=== PATIENT | male | born 1945 | race Caucasian/White ===

== ENCOUNTER 2019-09-04 07:47 | Day surgery (SDC) | payer MEDICARE, OTHER ==
[2019-09-04] VITALS (10 sets, daily range): BP systolic 97–146; BP diastolic 59–75
[~2019-09-04] VITALS: Ht 167.6 cm; Wt 81.4 kg
[~2019-09-04 07:47] MED LIST: ALBU18HF7 IH; APIX5TAB PO; ASPI-1146 PO; EZET10TA13 PO; FOLI0.4T2 PO; LEVO50TA11 PO; OMEP20TA25 PO; ROPI0.257 PO; ROSU40TA21 PO; TAMS-1 PO; VALS1TAB73 PO
[2019-09-04 08:21] LABS: BASOPHILS % (AUTO) 0.5 % (0.0-5.0); EOSINOPHILS % (AUTO) 0.9 % (0.0-8.0); MEAN CORPUSCULAR HEMOGLOBIN 31.1 pg (27.0-33.0); MEAN CORPUSCULAR VOLUME 97.3 fL (79-99); MONOCYTES % (AUTO) 9.7 % (3.0-13.0); NEUTROPHILS % (AUTO) 72.6 % (40.0-77.0); PLATELET COUNT (AUTO) 177 K/uL (130-400); RED BLOOD CELL COUNT(AUTO) 4.11 MIL/uL (4.50-6.20); RED CELL DISTRIBUTION WIDTH 14.6 % (11.0-15.5); WHITE BLOOD COUNT (AUTO) 7.4 K/uL (4.8-10.8)
[2019-09-04 08:30] LABS: CREATININE 1.6 mg/dL (0.5-1.5); POTASSIUM 4.5 mmol/L (3.5-5.1)
[2019-09-04 08:34] LABS: INR 0.95 (0.85-1.15); PARTIAL THROMBOPLASTIN TIME 29.7 SEC (26.3-35.5); PROTHROMBIN TIME 10.3 SEC (9.6-11.6)
[2019-09-04] MEDS ORDERED: SODIUM CHLORIDE 0.9% 1000ML 1,000 ML IV ONE (08:37)
[2019-09-04] MEDS ORDERED: MIDAZOLAM HCL 1 MG/ML 2ML VIAL ONE ×3 (10:29→11:34)
[2019-09-04] MEDS ORDERED: MEPERIDINE-PF 25 MG/ML SYG ONE ×3 (10:29→11:34)
[2019-09-04] MEDS ORDERED: HEPARIN SODIUM 1000UNIT/ML 10ML VIAL ONE (10:29)
[2019-09-04] MEDS ORDERED: LIDOCAINE HCL 2% 20ML ONE (10:30)
--- NOTE | 2019-09-04 12:30 | NUR ---
ASSESSMENT RECEIVED PT FROM FLYING INSTRUCTOR STAFF MARC W[place]STER. PT DOING WELL. DRSG TO RIGHT FEMORAL SITE DRY AND INTACT. INSTRUCTED PT ON IMPORTANCE OF NOT LIFTING HEAD UP OFF FROM BED OR LIFTING RIGHT LEG VERBALIZED UNDERSTANDING.
== END 2019-09-04 15:35 | disposition home or self-care (01) ==
LOC: DAH 07:47
PROVIDERS: ATTEND Internal Medicine Cardiovascular Disease
DX: I48.3 Typical atrial flutter (principal); I44.0 Atrioventricular block, first degree; I25.10 Atherosclerotic heart disease of native coronary artery without angina pectoris; Z95.1 Presence of aortocoronary bypass graft; I25.2 Old myocardial infarction; K21.9 Gastro-esophageal reflux disease without esophagitis; E03.9 Hypothyroidism, unspecified; J44.9 Chronic obstructive pulmonary disease, unspecified; E78.5 Hyperlipidemia, unspecified; Z96.652 Presence of left artificial knee joint; Z79.01 Long term (current) use of anticoagulants; Z90.49 Acquired absence of other specified parts of digestive tract; G62.9 Polyneuropathy, unspecified; Z79.899 Other long term (current) drug therapy
CPT/HCPCS: 36415; 80048; 85025; 85610; 85730; 92960; 93005; 93620; 93621; A4215; A4216; A4221; A4222; A4223 ×3; A4606; A4649 ×2; A4663; C1730; C1732; C1894 ×2; J1644 ×2; J2175 ×3; J2250 ×3; J3490; J7030; 99156; 99157

== ENCOUNTER → 2019-12-15 | Outpatient (CLI) | payer MEDICARE, OTHER ==
[~2019-12-15] MED LIST changes: -LEVO50TA11 PO
== END | disposition home or self-care (01) ==
LOC: RAH 11:01
PROVIDERS: ATTEND Internal Medicine Cardiovascular Disease
DX: J43.9 Emphysema, unspecified (principal); R07.9 Chest pain, unspecified; R06.00 Dyspnea, unspecified
CPT/HCPCS: 71250

== ENCOUNTER 2020-03-01 05:41 | Observation (INO) | payer MEDICARE, OTHER ==
[2020-02-26 11:25] LABS: BASOPHILS % (AUTO) 0.7 % (0.0-5.0); EOSINOPHILS % (AUTO) 1.5 % (0.0-8.0); LYMPHOCYTES % (AUTO) 22.8 % (21.0-51.0); MEAN CORPUSCULAR HEMOGLOBIN 30.9 pg (27.0-33.0); MEAN CORPUSCULAR HGB CONC 32.2 g/dL (32.0-36.0); MEAN CORPUSCULAR VOLUME 96.1 fL (79-99); NEUTROPHILS % (AUTO) 67.8 % (40.0-77.0); PLATELET COUNT (AUTO) 144 K/uL (130-400); RED BLOOD CELL COUNT(AUTO) 3.85 MIL/uL (4.50-6.20); RED CELL DISTRIBUTION WIDTH 14.6 % (11.0-15.5); WHITE BLOOD COUNT (AUTO) 5.4 K/uL (4.8-10.8)
[2020-02-26 11:33] LABS: CREATININE 1.2 mg/dL (0.5-1.5); POTASSIUM 4.7 mmol/L (3.5-5.1)
[2020-02-26 11:45] LABS: PARTIAL THROMBOPLASTIN TIME 29.1 SEC (26.3-35.5); PROTHROMBIN TIME 10.8 SEC (9.6-11.6)
[~2020-03-01] VITALS: Ht 167.6 cm; Wt 82.8 kg
[2020-03-01] VITALS (9 sets, daily range): BP systolic 94–147; BP diastolic 48–103
[~2020-03-01 05:41] MED LIST changes: -FOLI0.4T2 PO; +LOSA25TA41 PO; +NITR0.4T SL; -OMEP20TA25 PO; +OMEP40CA13 PO; -VALS1TAB73 PO; +folic acid PO
[2020-03-01] MEDS ORDERED: BUPIVACAINE/PF 0.25% 30ML VIAL IJ ONE (07:19)
[2020-03-01] MEDS ORDERED: CEFAZOLIN SODIUM 1 GM VIAL ONE (07:19)
[2020-03-01] MEDS ORDERED: MIDAZOLAM HCL 1 MG/ML 2ML VIAL ONE ×2 (07:20→08:15)
[2020-03-01] MEDS ORDERED: MEPERIDINE-PF 25 MG/ML SYG ONE ×2 (07:20→08:15)
[2020-03-01] MEDS ORDERED: LIDOCAINE HCL 1% MDV 50ML VIAL ONE (07:20)
--- NOTE | 2020-03-01 07:25 | NUR ---
TRANSFER PATIENT TRANSFERRED TO CIVIL RIGHTS ATTORNEY FOR PACEMAKER INSERTION. PATIENT IN NO DISTRESS AND STATES NO COMPLAINTS OF PAIN. IV IN PLACE ON LEFT HAND AND PATENT.
[2020-03-01] MEDS ORDERED: SODIUM CHLORIDE 0.9% 1000ML 1,000 ML IV SCH (08:00)
[2020-03-01] MEDS ORDERED: ACETAMINOPHEN-CODEINE 300/30MG TAB PO PRN (09:15)
[2020-03-01] MEDS ORDERED: NITROGLYCERIN 0.4 MG SL TAB SL SCH (09:15)
--- NOTE | 2020-03-01 09:30 | NUR ---
RECEIVED FROM [facility] STAMPER VIA BED ACCOMPANIED BY Shanti GUDINO RN. PT. AAOX3, RESP.'S EVEN AND UNLABORED. DENIES ANY C/O SOB, DENIES ANY CURRENT PAIN. LEFT UPPER CHEST WITH DRSG IN PLACE, MINIMAL SANGUINEOUS DRAINAGE NOTED, APPROX. 1 CM IN DIAMETER. LEFT ARM WITH SLING IN PLACE. INSTRUCTED ON STRICT BR PER MD ORDERS, VERBALIZED UNDERSTANDING. CALL LIGHT WITHIN REACH, VERBALIZED ABILITY TO USE. BED LOW, SIDE RAILS UP.
--- NOTE | 2020-03-01 10:05 | NUR ---
TRANSFER PATIENT TRANSFERRED FROM [facility] TO ROOM 426. SPOUSE ESCORTED UP TO ROOM WITH PATIENT'S BELONGINGS.
--- NOTE | 2020-03-01 10:15 | NUR ---
Bobby BE PRESIDENT & CEO, IN ROOM SPEAKING WITH PT., FOR CONSULT.
[2020-03-01] MEDS: LOSARTAN 50 MG TABLET PO SCH (11:33)
[2020-03-01] MEDS ORDERED: FOLIC ACID 1 MG TABLET PO SCH (11:35)
[2020-03-01] MEDS ORDERED: FOLIC ACID 1 MG TABLET ONE (12:03)
[2020-03-01] MEDS: PANTOPRAZOLE SODIUM 40 MG TABLET.DR PO SCH (12:44)
[2020-03-01] MEDS ORDERED: TAMSULOSIN HCL 0.4 MG CAP.ER.24H PO SCH (21:00)
[2020-03-01] MEDS ORDERED: ROPINIROLE HCL 0.25 MG TABLET PO SCH (21:00)
[2020-03-01] MEDS ORDERED: ATORVASTATIN CALCIUM 40 MG TABLET PO SCH (21:00)
[2020-03-01] MEDS ORDERED: EZETIMIBE 10 MG TAB PO SCH (21:00)
[2020-03-01] MEDS ORDERED: ASPIRIN 325MG EC TAB 325 MG TABLET.DR PO SCH (21:00)
--- NOTE | 2020-03-01 21:31 | NUR ---
PATIENT RECEIVED IN BED, NO ACUTE DISTRESS NOTED. PATIENT IS POST DUAL CHAMBER PPM TO LEFT UPPER CHEST WALL. DRESSING IS DRY AND INTACT WITH LEFT ARM IN A SLING. RADIAL PULSES STRONG ARM WARM TO TOUCH. PATIENT STATES HE NOTICED HE HAD SOME BLOOD TO TIP OF PENIS. I EVALUATED THE URINE IN URINAL, SMALL BLOOD CLOT NOTED. PATIENT INSTRUCTED TO CONTINUE TO USE URINAL. WILL CONT TO MONITOR CLOSELY. TELE MONITRING WITH BARREL RIFLER BROACH UNDERLYING SR 74. CALL WEBB IS WITH IN REACH.
[2020-03-02 00:06] VITALS: BP 125/84
[2020-03-02 03:50] LABS: BASOPHILS % (AUTO) 0.9 % (0.0-5.0); EOSINOPHILS % (AUTO) 2.3 % (0.0-8.0); HEMATOCRIT 35.7 % (42-54); LYMPHOCYTES % (AUTO) 24.5 % (21.0-51.0); MEAN CORPUSCULAR HEMOGLOBIN 30.5 pg (27.0-33.0); MEAN CORPUSCULAR HGB CONC 31.9 g/dL (32.0-36.0); MEAN CORPUSCULAR VOLUME 95.5 fL (79-99); MONOCYTES % (AUTO) 9.3 % (3.0-13.0); NEUTROPHILS % (AUTO) 62.8 % (40.0-77.0); PLATELET COUNT (AUTO) 135 K/uL (130-400); RED BLOOD CELL COUNT(AUTO) 3.74 MIL/uL (4.50-6.20); RED CELL DISTRIBUTION WIDTH 14.8 % (11.0-15.5); WHITE BLOOD COUNT (AUTO) 5.6 K/uL (4.8-10.8)
[2020-03-02 04:05] VITALS: BP 140/80
[2020-03-02 04:09] LABS: CREATININE 1.1 mg/dL (0.5-1.5); POTASSIUM 4.5 mmol/L (3.5-5.1)
[2020-03-02 08:20] VITALS: BP 142/88
[2020-03-02] MEDS: LOSARTAN 50 MG TABLET PO SCH (08:41)
[2020-03-02] MEDS: PANTOPRAZOLE SODIUM 40 MG TABLET.DR PO SCH (08:41)
[2020-03-02] MEDS ORDERED: FOLIC ACID 1 MG TABLET PO SCH (09:00)
[2020-03-02] MEDS ORDERED: ACETAMINOPHEN 325 MG TAB PO PRN (09:00)
--- NOTE | 2020-03-02 09:49 | NUR ---
Bobby BE SOCIAL AND HUMAN SERVICES ASSISTANT, IN ROOM SPEAKING WITH PT. AND PT.'S SPOUSE AT BEDSIDE RE:PLAN OF CARE. QUESTIONS ANSWERED BY SOCIAL AND HUMAN SERVICES ASSISTANT.
--- NOTE | 2020-03-02 10:35 | NUR ---
1000 patient signed COLÓN Letter, I faxed COLÓN Letter to [phone] and placed in chart under consent tab.
[2020-03-02 11:00] VITALS: BP 143/78
[2020-03-02] MEDS ORDERED: ACETAMINOPHEN 325 MG TAB PO SCH (14:15)
--- NOTE | 2020-03-02 15:10 | NUR ---
HL REMOVED, CATHETER INTACT. REMINDED PT. OF LEFT ARM RESTRICTIONS/PRECAUTIONS, PT. AND SPOUSE AT BEDSIDE VERBALIZED MUTUAL UNDERSTANDING. ADVISED PT. TO FOLLOW UP WITH [facility], DR. BROOKS'S OFFICE, NEXT SUNDAY FOR SITE CHECK; VERBALIZED MUTUAL UNDERSTANDING. DISCHARGE INSTRUCTIONS GIVEN, VERBALIZED MUTUAL UNDERSTANDING.
--- NOTE | 2020-03-02 15:14 | NUR ---
SCHEDULED OPP, NO TRIGGERS TO CASE MANAGEMENTS, NO CONCERNS VOICED BY RN OR PATIENT DETAILED CM ASSESSMENT DEFERRED Addendum: 03/02/20 at 1516 by ANTOINETTE MCDERMOTT RN CM Amended: Links added.
--- NOTE | 2020-03-02 15:25 | NUR ---
DISCHARGED HOME VIA W/C WITH BELONGINGS ACCOMPANIED BY ILIR GREGORY. Addendum: 03/02/20 at 1533 by ULI REDDING RN RN INCLUDING PM "DEVICE BOX."
== END 2020-03-02 15:30 | disposition home or self-care (01) ==
LOC: DAH 05:41 → DAHIP 05:42 → DAH 05:42 → 4DH 09:48
PROVIDERS: ADMIT Internal Medicine; ATTEND Internal Medicine
DX: I49.5 Sick sinus syndrome (principal); I45.89 Other specified conduction disorders; I44.1 Atrioventricular block, second degree; I47.1 Supraventricular tachycardia; I10 Essential (primary) hypertension; E78.5 Hyperlipidemia, unspecified; K21.9 Gastro-esophageal reflux disease without esophagitis; N40.0 Benign prostatic hyperplasia without lower urinary tract symptoms; E03.9 Hypothyroidism, unspecified; I25.2 Old myocardial infarction; I48.4 Atypical atrial flutter; J44.9 Chronic obstructive pulmonary disease, unspecified; I35.1 Nonrheumatic aortic (valve) insufficiency; K44.9 Diaphragmatic hernia without obstruction or gangrene; Z90.49 Acquired absence of other specified parts of digestive tract; Z96.652 Presence of left artificial knee joint; Z95.1 Presence of aortocoronary bypass graft; Z79.01 Long term (current) use of anticoagulants; Z79.899 Other long term (current) drug therapy
CPT/HCPCS: 33208; 36415 ×2; 71045; 80048 ×2; 85025 ×2; 85610; 85730; 93005; A4215; A4216; A4221; A4222; A4223 ×2; A4606; A4663; C1785; C1898 ×2; G0378 ×20; J0690; J2175 ×2; J2250 ×2; J3490 ×2; J7030; 99156; 99157